=== PATIENT | female | born 1950 | race Caucasian/White ===

== ENCOUNTER → 2016-08-12 | Outpatient (CLI) | payer MEDICARE, OTHER ==
[~2016-08-12] MED LIST: AMOX500C2; LVT.025T; OXYC1TAB; ROSU5TAB
--- NOTE | 2016-08-12 16:42 | Diagnostic Imaging Report ---
EXAMINATION: Bilateral shoulder radiographs, total of 6 views. INDICATION: Bilateral shoulder pain. FINDINGS: The left shoulder demonstrates acromioclavicular and glenohumeral joint degenerative changes with subchondral sclerosis. There are small inferior osteophytes seen at both joints. No subluxation or dislocation. No fracture is seen. In the right shoulder, there are two anchors seen in the humeral head suggestive of prior rotator cuff surgery. 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 There is also a laterally downsloping configuration of the acromion. The glenohumeral joint demonstrates minimal degenerative subchondral sclerotic changes. IMPRESSION: Degenerative changes, worst in the right acromioclavicular joint. There is also a laterally downsloping configuration of the acromion on the right which may contribute to rotator cuff impingement. Correlate clinically. Dictated by: Dictated on workstation # [id number]
== END ==
LOC: RAD 13:55
PROVIDERS: ATTEND Nurse Practitioner Family
DX: M25.511 Pain in right shoulder (principal); M25.512 Pain in left shoulder; M19.011 Primary osteoarthritis, right shoulder; M19.012 Primary osteoarthritis, left shoulder

== ENCOUNTER → 2017-06-30 | Outpatient (CLI) | payer MEDICARE, OTHER, MEDICAID ==
--- NOTE | 2017-06-30 13:55 | Diagnostic Imaging Report ---
INDICATION: Routine screening. COMPARISON: 10/09/2015 and 08/24/2014. TECHNIQUE: Screening digital mammography was performed bilaterally with a Computer Aided Detection (CAD) system. FINDINGS: Both breasts are primarily involutional. Nodular densities in the upper outer aspect of the left breast appear stable. No new mass or malignant appearing microcalcifications are seen. The axillae are unremarkable. IMPRESSION: No mammographic features suspicious for malignancy are identified. ACR BI-RADS Category 2: Benign findings. Result letter will be mailed to the patient. Note: At least 10% of breast cancer is not imaged by mammography. Dictated by: Dictated on workstation # [id number]
== END ==
LOC: RAD 11:24
PROVIDERS: ATTEND Nurse Practitioner Family
DX: Z12.31 Encounter for screening mammogram for malignant neoplasm of breast (principal)
CPT/HCPCS: 77067

== ENCOUNTER → 2019-03-11 | Outpatient (CLI) | payer MEDICAID, MEDICARE, OTHER ==
--- NOTE | 2019-03-11 18:00 | Diagnostic Imaging Report ---
INDICATION: Pain in the right breast. Correlation is made with prior mammogram from 06/30/2017. 2-D and 3-D bilateral diagnostic mammography was performed. The current study was also evaluated with a Computer Aided Detection (CAD) system. 3-D tomosynthesis was also performed and reviewed. FINDINGS: Scattered fibroglandular densities are identified bilaterally. BB markers were placed at the areas of pain in the right breast. No underlying abnormality is seen. Overall breast parenchymal pattern appears to be stable compared with prior exam. Small nodular densities in the outer left breast are stable. No suspicious microcalcifications are seen. There are benign calcifications. Axillae are unremarkable. IMPRESSION: No suspicious mammographic abnormalities are identified. Even so, directed sonographic interrogation of the areas of pain in the right breast is recommended and will be performed today. ACR BI-RADS Category 0: Incomplete. (Needs additional imaging evaluation). Result letter will be mailed to the patient. Note: At least 10% of breast cancer is not imaged by mammography. Dictated by: Dictated on workstation # [id number]
--- NOTE | 2019-03-11 18:01 | Diagnostic Imaging Report ---
INDICATION: Right-sided breast pain. Correlation is made with diagnostic mammogram earlier the same day. FINDINGS: Sonographic interrogation of the areas of pain in the medial and lateral aspect of the right breast was performed. No sonographic abnormality is seen. No solid or cystic mass is detected. IMPRESSION: No sonographic abnormality is detected. ACR BI-RADS Category 1: Negative. Dictated by: Dictated on workstation # [id number]
== END ==
LOC: RAD 13:32
PROVIDERS: ATTEND Nurse Practitioner Family
DX: N64.4 Mastodynia (principal)
CPT/HCPCS: 77066

== ENCOUNTER → 2020-09-17 | Outpatient (CLI) | payer MEDICARE, MEDICAID ==
--- NOTE | 2020-09-18 12:35 | Diagnostic Imaging Report ---
INDICATION: Routine screening. Comparison is made with prior mammogram from 03/11/2019 and 06/30/2017. 2-D and 3-D bilateral screening mammography was performed with CAD. Scattered fibroglandular densities are identified bilaterally. Nodular densities in both breasts appears stable. No spiculated mass or malignant appearing microcalcifications are seen. There are benign calcifications noted. Axillae are unremarkable. IMPRESSION: BI-RADS Category 2 No mammographic features suspicious for malignancy are identified. ACR BI-RADS Category 2: Benign findings. Result letter will be mailed to the patient. Note: At least 10% of breast cancer is not imaged by mammography. Dictated by: Dictated on workstation # [id number]
== END ==
LOC: RAD 15:30
PROVIDERS: ATTEND Nurse Practitioner Family
DX: Z12.31 Encounter for screening mammogram for malignant neoplasm of breast (principal)
CPT/HCPCS: 77063; 77067